=== PATIENT | female | born 1975 | race African-American/Black ===

== ENCOUNTER 2018-11-01 11:33 | Emergency (ER) | payer OTHER ==
[~2018-11-01] VITALS: Ht 160 cm; Wt 88.5 kg
[2018-11-01] MEDS ORDERED: ONDANSETRON HCL 4 MG ORAL DISINTEGRATING TAB PO ONE (11:45)
[2018-11-01] MEDS ORDERED: ACETAMINOPHEN/CODEINE 300MG - 30MG TAB PO ONE (11:45)
--- NOTE | 2018-11-01 12:33 | NUR ---
Called CT to inquire about ETA of scan. stated pt should be next. Addendum: 11/01/18 at 1328 by JORGE Pt updated on wait time.
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
== END 2018-11-01 13:50 | disposition home or self-care (01) ==
LOC: ER 11:33
DX: S00.83XA Contusion of other part of head, initial encounter (principal); R42 Dizziness and giddiness; R11.2 Nausea with vomiting, unspecified; W22.09XA Striking against other stationary object, initial encounter; Y92.488 Other paved roadways as the place of occurrence of the external cause; I10 Essential (primary) hypertension
CPT/HCPCS: 70450; 72125; 99283; Q0162

== ENCOUNTER 2021-02-21 13:36 | Emergency (ER) | payer OTHER ==
[~2021-02-21] VITALS: Ht 160 cm; Wt 88.9 kg
[2021-02-21] MEDS ORDERED: ONDANSETRON HCL 4 MG ORAL DISINTEGRATING TAB PO ONE (14:45)
[2021-02-21] MEDS ORDERED: IBUPROFEN 600 MG TAB PO ONE (14:45)
[2021-02-21] MEDS ORDERED: HYDROCODONE/APAP 5MG-325MG TAB PO ONE (14:45)
[2021-02-21] MEDS ORDERED: IBUPROFEN IB200 MG PO (14:46)
[2021-02-21] MEDS ORDERED: ACETAMINOPHEN-1 EAC4 PO (14:46)
[2021-02-21] MEDS ORDERED: ONDANSETRON HCL 4 MG ORAL DISINTEGRATING TAB ONE (15:28)
[2021-02-21] MEDS ORDERED: HYDROCODONE/APAP 5MG-325MG TAB ONE (15:28)
[2021-02-21] MEDS ORDERED: IBUPROFEN 600 MG TAB ONE (15:28)
== END 2021-02-21 15:39 | disposition home or self-care (01) ==
LOC: FSED 13:42
DX: S93.402A Sprain of unspecified ligament of left ankle, initial encounter (principal); W01.0XXA Fall on same level from slipping, tripping and stumbling without subsequent striking against object, initial encounter; I10 Essential (primary) hypertension
CPT/HCPCS: 73600; 99283; Q0162